=== PATIENT | male | born 1965 | race Caucasian/White ===

== ENCOUNTER 2017-09-04 06:52 | Outpatient (CLI) | payer BC | END 2017-09-04 06:53 | disposition home or self-care (01) | LOC: BICMRI 06:52 | PROVIDERS: ATTEND Orthopaedic Surgery Foot and Ankle Surgery | DX: M25.572 Pain in left ankle and joints of left foot (principal); M19.072 Primary osteoarthritis, left ankle and foot ==

== ENCOUNTER 2018-05-16 10:29 | Outpatient (CLI) | payer OTHER ==
--- NOTE | 2018-05-16 12:56 | CT ---
CT OF THE LEFT ANKLE AND FOOT: INDICATION: History of left ankle arthritis; preoperative prosthesis protocol examination for ankle replacement. FINDINGS: There is lateral tilt of the talar dome in relation to the ankle mortise and indicative of ligamentou s instability. There is advanced secondary osteoarthritic change involving the tibiotalar joint with multiple subchondral cyst-like abnormalities seen involving the medial aspect of the tibiotalar join t. There are ossific densities seen distal and lateral to the lateral malleolus and lateral body of the talus reflecting small intraarticular bodies. There is a benign-appearing excrescence seen off o f the lateral aspect of the calcaneus. There are multiple small intraarticular bodies also present w ithin the medial aspect of the distal tibiotalar joint. There is mild osteoarthritic change involvin g posterior subtalar articulation. There is mild osteoarthrosis involving talonavicular articulation . Lisfranc alignment appears preserved. 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 There is mild edema surrounding the joint. IMPRESSION: 1. 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 There is widening of the lateral ankle mortise. 2. Multiple intraarticular bodies of the tibiotalar joint. 3. Mild subtalar osteoarthrosis. 4. Small benign osseous excrescence off the lateral aspect of the calcaneus. POS: [facility]
== END 2018-05-16 10:30 | disposition home or self-care (01) ==
LOC: CT 10:29
PROVIDERS: ATTEND Orthopaedic Surgery Foot and Ankle Surgery
DX: M19.072 Primary osteoarthritis, left ankle and foot (principal)

== ENCOUNTER 2018-07-11 11:35 | Outpatient (CLI) | payer OTHER ==
--- NOTE | 2018-07-11 14:19 | CT ---
LEFT LOWER EXTREMITY CT WITHOUT IV CONTRAST: Date: 07/11/18 COMPARISON: 05/16/18. HISTORY: 52-year-old male for PROPHECY protocol evaluation of the knee and ankle. Exam is preoperative for pro sthetic placement. FINDINGS: There are some mild to moderate arthrosis changes of the knee joint. The ankle joint, however, demons trates very severe arthrosis changes with abnormally widened ankle mortise with extensive intraarticu lar bodies within the tibiotalar joint and extensive hypertrophic osteophytosis. There is some mild s ubtalar osteoarthrosis and talonavicular osteoarthrosis. Stable appearance from 05/16/18. IMPRESSION: Findings as above. Stable appearing ankle when compared to the 05/16/18 study. POS: [facility]
== END 2018-07-11 11:36 | disposition home or self-care (01) ==
LOC: CT 11:35
PROVIDERS: ATTEND Orthopaedic Surgery Foot and Ankle Surgery
DX: M17.12 Unilateral primary osteoarthritis, left knee (principal); M19.072 Primary osteoarthritis, left ankle and foot; M25.772 Osteophyte, left ankle

== ENCOUNTER 2021-10-03 13:24 | Outpatient (CLI) | payer BC | END 2021-10-03 13:25 | disposition home or self-care (01) | LOC: DTY/OP 13:24 | PROVIDERS: ATTEND Nurse Practitioner Family | DX: Z13.1 Encounter for screening for diabetes mellitus (principal) | CPT/HCPCS: 97802 ==

== ENCOUNTER 2022-01-15 14:16 | Outpatient (CLI) | payer BC | END 2022-01-15 14:17 | disposition home or self-care (01) | LOC: BICRAD 14:16 | PROVIDERS: ATTEND Family Medicine | DX: M65.312 Trigger thumb, left thumb (principal) ==